=== PATIENT | male | born 1975 | race Caucasian/White ===

== ENCOUNTER 2021-03-07 15:10 | Inpatient (IN) | payer OTHER ==
[~2021-03-07] VITALS: Ht 190.5 cm; Wt 111.8 kg
[2021-03-07 17:26] LABS: BASOPHIL 0.1 % (0-2); HCT 41.5 % (42.0-52.0); HGB 14.9 g/dl (13.2-18.0); LYMPHOCYTE 15.6 % (15-48); MCH 30.7 pg (25.0-31.0); MCHC 35.9 g/dL (32.0-36.0); MCV 85.6 fL (78.0-100.0); MONOCYTE 7.4 % (0-12); MPV 10.4 fL (6.0-9.5); NEUTROPHIL 76.3 % (41-80); PLT 157 K/uL (150-400); RBC 4.85 M/uL (4.70-6.00); RDW 11.4 % (11.5-14.0); WBC 8.02 K/uL (4.0-10.5)
[2021-03-07 18:20] LABS: ALBUMIN 2.8 g/dL (3.4-5.0); BILIRUBIN - TOTAL 0.9 mg/dL (0.2-1.0); BUN/CREAT RATIO (CALC) 11.7 RATIO; CREATININE 0.94 mg/dL (0.67-1.17); GLOBULIN (CALCULATION) 4.2 g/dL; POTASSIUM 3.6 mmol/L (3.5-5.1)
[2021-03-07] MEDS ORDERED: 3IN1 COMMODE (18:28)
[2021-03-07] MEDS ORDERED: VENTOLIN (2.5 MG/3 M INH (18:28)
[2021-03-07] MEDS ORDERED: ZPAK PO (18:28)
[2021-03-07 23:33] LABS: LACTIC ACID 1.7 mmol/L (0.4-1.9)
[2021-03-08 05:21] LABS: BASOPHIL 0.3 % (0-2); HCT 40.5 % (42.0-52.0); HGB 14.3 g/dl (13.2-18.0); LYMPHOCYTE 16.8 % (15-48); MCH 30.7 pg (25.0-31.0); MCHC 35.3 g/dL (32.0-36.0); MCV 86.9 fL (78.0-100.0); MONOCYTE 6.8 % (0-12); MPV 10.7 fL (6.0-9.5); NEUTROPHIL 75.5 % (41-80); PLT 163 K/uL (150-400); RBC 4.66 M/uL (4.70-6.00); RDW 11.6 % (11.5-14.0); WBC 6.31 K/uL (4.0-10.5)
[2021-03-08 05:41] LABS: ALBUMIN 2.4 g/dL (3.4-5.0); BILIRUBIN - TOTAL 0.7 mg/dL (0.2-1.0); BUN/CREAT RATIO (CALC) 20.6 RATIO; CREATININE 0.68 mg/dL (0.67-1.17); GLOBULIN (CALCULATION) 4.1 g/dL; POTASSIUM 4.3 mmol/L (3.5-5.1); TOTAL PROTEIN 6.5 g/dL (6.4-8.2)
[2021-03-08 12:21] LABS: C-REACTIVE PROTEIN >18.00 mg/dL (<=0.90)
--- NOTE | 2021-03-08 18:04 | NUR ---
3932 PT TEACHING WITH PT AND ABOUT DIABETES MANAGEMENT. ORDER IN FOR PT TO RECIEVE DIABETC EDUCATION. FORM FAXED TO [place] FOR EDUCATION. PT AND VERBALIZED UNDERSTANDING.
[2021-03-09 07:15] LABS: BASOPHIL 0.3 % (0-2); HCT 40.5 % (42.0-52.0); HGB 14.1 g/dl (13.2-18.0); LYMPHOCYTE 20.9 % (15-48); MCH 30.6 pg (25.0-31.0); MCHC 34.8 g/dL (32.0-36.0); MCV 87.9 fL (78.0-100.0); MONOCYTE 9.7 % (0-12); MPV 10.8 fL (6.0-9.5); NEUTROPHIL 68.2 % (41-80); PLT 210 K/uL (150-400); RBC 4.61 M/uL (4.70-6.00); RDW 11.6 % (11.5-14.0); WBC 7.42 K/uL (4.0-10.5)
[2021-03-09 08:18] LABS: ALBUMIN 2.4 g/dL (3.4-5.0); BILIRUBIN - TOTAL 0.7 mg/dL (0.2-1.0); BUN/CREAT RATIO (CALC) 29.7 RATIO; C-REACTIVE PROTEIN 9.6 mg/dL (<=0.90); CREATININE 0.64 mg/dL (0.67-1.17); POTASSIUM 3.7 mmol/L (3.5-5.1); TOTAL PROTEIN 6.4 g/dL (6.4-8.2)
[2021-03-10 06:08] LABS: BASOPHIL 0.1 % (0-2); EOSINOPHIL 0 % (0-5); HCT 38.1 % (42.0-52.0); HGB 13.2 g/dl (13.2-18.0); LYMPHOCYTE 20.3 % (15-48); MCH 30.8 pg (25.0-31.0); MCHC 34.6 g/dL (32.0-36.0); MONOCYTE 9.3 % (0-12); MPV 10.9 fL (6.0-9.5); NEUTROPHIL 68.5 % (41-80); NRBC 0; PLT 215 K/uL (150-400); RBC 4.28 M/uL (4.70-6.00); RDW 11.8 % (11.5-14.0); WBC 7.7 K/uL (4.0-10.5)
[2021-03-10 07:09] LABS: ALBUMIN 2.2 g/dL (3.4-5.0); BILIRUBIN - TOTAL 0.8 mg/dL (0.2-1.0); BUN/CREAT RATIO (CALC) 27.6 RATIO; C-REACTIVE PROTEIN 3.9 mg/dL (<=0.90); CREATININE 0.58 mg/dL (0.67-1.17); GLOBULIN (CALCULATION) 3.4 g/dL; POTASSIUM 3.8 mmol/L (3.5-5.1); TOTAL PROTEIN 5.6 g/dL (6.4-8.2)
[2021-03-11] MEDS ORDERED: GLUCOTROL10 MG PO (10:44)
[2021-03-11] MEDS ORDERED: MEDROL 4MG DOSEP4 MG PO (10:44)
[2021-03-11] MEDS ORDERED: METFORMIN HCL500 MG PO (10:44)
[2021-03-11] MEDS ORDERED: DULERA 200 MCG8.8 GM INH (10:44)
== END 2021-03-11 12:31 | disposition home or self-care (01) | DRG 177 ==
LOC: FER 15:10 → FMS 17:41
PROVIDERS: Nurse Practitioner; Physician Assistant; ADMIT Internal Medicine
PROC: 8E0ZXY6 Isolation (ICD-10-PCS; principal; 2021-03-07)
PROC: XW033E5 Introduction of Remdesivir Anti-infective into Peripheral Vein, Percutaneous Approach, New Technology Group 5 (ICD-10-PCS; 2021-03-07)
DX: U07.1 COVID-19 (principal); J12.82 Pneumonia due to coronavirus disease 2019; J96.01 Acute respiratory failure with hypoxia; E11.65 Type 2 diabetes mellitus with hyperglycemia; E66.09 Other obesity due to excess calories; Z68.30 Body mass index [BMI] 30.0-30.9, adult; Z88.5 Allergy status to narcotic agent; Z98.890 Other specified postprocedural states
CPT/HCPCS: 36415; 36600; 71045; 80053; 82728; 82803; 82962; 83036; 83605; 83735; 84145; 85025; 86140; 87040; 94010; 94640; 94667; 94668; C9399; J1100; J1650; J7030; J7050; J7512; U0002